=== PATIENT | female | born 1950 | race Caucasian/White ===

== ENCOUNTER 2021-04-08 12:35 | Outpatient (CLI) | payer MEDICARE | END 2021-04-08 12:36 | disposition critical access hospital (66) | LOC: EMS 12:35 | DX: S69.91XA Unspecified injury of right wrist, hand and finger(s), initial encounter (principal); W01.0XXA Fall on same level from slipping, tripping and stumbling without subsequent striking against object, initial encounter; Y93.89 Activity, other specified | CPT/HCPCS: A0425; A0429 ==

== ENCOUNTER 2021-04-08 12:55 | Emergency (ER) | payer BC, MEDICARE ==
[2021-04-08] MEDS ORDERED: HYDROmorphone 1 MG/ML CARPUJECT IVP STA (13:00)
--- NOTE | 2021-04-08 13:03 | ED Physician Documentation ---
History of Present Illness - Stated complaint Stated Complaint: GLF/WRIST INJURY - Additonal information Additional information: 70-year-old female who denies any pertinent past medical history presents the emergency department after ground-level fall. She was walking [place] in the wet grass and slipped. She braced herself from behind. She did not strike her head or lose consciousness. She had obvious deformity to the wrist and forearm. EMS placed the patient in a cardboard splint and she presents here. Patient is right-hand dominant Takes no prescribed medications denies any history of hypertension or diabetes. Non-smoker no alcohol use. EMS reported that she was somewhat lightheaded and dizzy initially after the fall but that has fully resolved. Review of Systems Constitutional: denies: Fever, Chills Nose: reports: Reviewed and negative Throat: reports: Reviewed and negative Respiratory: reports: Reviewed and negative GI: reports: Reviewed and negative : reports: Reviewed and negative Skin: reports: Reviewed and negative Musculoskeletal: reports: Extremity pain (right forearm/wrist) PD PAST MEDICAL HISTORY - Past Surgical History Past Surgical History: No - Present Medications Home Medications: Ambulatory Orders Medication Instructions Recorded Confirmed HYDROcod/ACETAM 5/325 [[place] 5/325] 1 tablet PO BID PRN #15 tablet 04/08/21 - Allergies Allergies/Adverse Reactions: Allergies Allergy/AdvReac Type Severity Reaction Status Date / Time No Known Drug Allergies Allergy Verified 12/22/12 00:57 - Social History Does the pt smoke?: No Smoking Status: Never smoker Does the pt drink ETOH?: No Does the pt have substance abuse?: No - Immunizations Immunizations are current?: Yes - POLST Patient has POLST: No PD ED PE EXPANDED - General General: Alert, No acute distress, In Pain - Cardiac Cardiac: Regular Rate, Radial strong equal, Pedal strong equal, Cap refill < 2 sec. No: Murmur Present - Respiratory Respiratory: Clear to ausultation vaibhav. No: Distress, Labored - Abdomen Abdomen: Normal Bowel sounds. No: Tender to palpation - Extremities Extremities: Right forearm (+ CMST; increased pain with pronation/supination; + deformity medial wrist. 2+ radial pulse) Results - Vitals Vitals: Vital Signs - 24 hr 04/08/21 04/08/21 13:03 14:32 Temperature 36.1 C L 36.7 C Heart Rate 61 68 Respiratory 18 16 Rate Blood Pressure 144/72 H 138/64 H O2 Saturation 100 100 Oxygen O2 Source Room air - Rads (name of study) right wrist Radiology: Final report received, EMP read indepedently, Other (right radial fx impacted without dignificant angulation/displacement) PD MEDICAL DECISION MAKING - ED course Complexity details: reviewed results, re-evaluated patient, d/w patient ED course: 70-year-old female presents emergency department with acute right wrist and forearm pain after ground-level fall this afternoon. The x-ray shows an impacted distal radial fracture with minimal displacement. Patient was placed in a sugar tong splint and given a sling. CMST perserved post splinting. She lives in [place] and will follow up with a primary care provider on Sunday to obtain referral to orthopedics. Routine management of a fiberglass splint was discussed. Limited amount of hydrocodone was sent to the [facility] in [place]. I am prescribing a short course of short-acting opioid pain medication for this patient. I have reviewed the patients CLIN TECH and no concerning findings were noted. I have discussed that the opioids are for short term therapy only, and will not be refilled from the ED. Departure - Departure Disposition: 01 Home, Self Care Clinical Impression: Distal radius fracture, right Qualifiers: Encounter type: initial encounter Fracture type: closed Fracture morphology: other fracture Qualified Code(s): S52.591A - Other fractures of lower end of right radius, initial encounter for closed fracture Condition: Stable Instructions: ED Fx Upper Extr Ch Prescriptions: HYDROcod/ACETAM 5/325 [[place] 5/325] 1 tablet PO BID PRN #15 tablet PRN Reason: Pain Comments: Savannah kay are seen in the emergency department today for right wrist and forearm pain after ground-level fall this afternoon. The x-ray does show a distal radial fracture. You have been placed in a temporary fiberglass splint. This type of splint cannot get wet. I encourage you to call your primary care provider on Sunday to obtain a referral to orthopedics in [place]. If at any point you feel that your splint is too tight, you have numbness or tingling in your hands or fingers or you develop any fevers or red streaking then please return to any ER for reevaluation. Tylenol or ibuprofen [id number]-[id number] should be taken for pain. For severe pain only I have prescribed a limited amount of hydrocodone. This prescription has been sent to the [facility] in [place] I am prescribing a short course of narcotic pain medication for you. These are potentially dangerous and addictive medications that should be used carefully. These medications may constipate you. Take an qrbl-lsl-lwjpbzl stool softener (docusate) twice daily with plenty of water while taking these medications. If you go 24 hours without a bowel movement, take yrrq-oci-mokrplz miralax, per package instructions. Do not drink or drive while taking these medications. If you received narcotic or sedating medications while in the emergency department, do not drive for 24 hours. Store this medication in a safe, secure place and out of reach of children. It is a violation of federal law to give or sell this medication to another person or to use in a manner other than prescribed. The ED will not refill narcotic prescriptions, including prescriptions lost or stolen. To dispose of unwanted medications: 1. [facility] at [address] in [place] has a medication drop box. They accept prescription medications (in pill form) Sunday through Sunday 9:00 a.m. to 5:00 p.m. 2. The [facility] [employer] accepts prescription medications (in pill form only) for disposal year round. Call for more information. 3. Contact the [facility] for the next [facility] sponsored prescription drug collection event. , [phone], or [phone]; Note that many narcotic pain relievers also contain Tylenol/acetaminophen. Please ensure that your total dose of acetaminophen from all sources does not exceed 3 g (3000 mg) per day. Discharge Date/Time: 04/08/21 14:33
--- NOTE | 2021-04-08 14:09 | XRAY Report ---
PROCEDURE: Forearm RT INDICATIONS: GLF with deformity TECHNIQUE: 2 views of the forearm were acquired. COMPARISON: Same day right wrist radiographs. FINDINGS: Bones: Distal radius fracture. No dislocations. No suspicious bony lesions. Soft tissues: No suspicious soft tissue calcifications or masses. IMPRESSION: Distal radius fracture. Reviewed by: Jaciel Cohen MD on 04/08/2021 2:08 PM [facility] Approved by: Jaciel Cohen MD on 04/08/2021 2:08 PM [facility] Station ID: [id number]
--- NOTE | 2021-04-08 14:11 | XRAY Report ---
PROCEDURE: Wrist 3 View RT INDICATIONS: GLF with deformity TECHNIQUE: 3 views of the wrist were acquired. COMPARISON: Same day right forearm radiographs. FINDINGS: Bones: Comminuted fracture of the distal radius. There is mild impaction. No dislocation. No suspici ous bony lesions. Soft tissues: No suspicious soft tissue calcifications. IMPRESSION: Comminuted fracture of the distal radius. Reviewed by: Jaciel Cohen MD on 04/08/2021 2:10 PM PST Approved by: Jaciel Cohen MD on 04/08/2021 2:10 PM PST Station ID: [id number]
[2021-04-08 14:32] VITALS: BP 138/64
== END 2021-04-08 14:33 | disposition home or self-care (01) ==
LOC: EDUNIT# → ED 12:55
DX: S52.591A Other fractures of lower end of right radius, initial encounter for closed fracture (principal); W01.0XXA Fall on same level from slipping, tripping and stumbling without subsequent striking against object, initial encounter; Y93.01 Activity, walking, marching and hiking; Y92.73 Farm field as the place of occurrence of the external cause
CPT/HCPCS: 73090; 73110; 96374; 99283; 99284; J1170